=== PATIENT | male | born 1995 | race Asian ===

== ENCOUNTER 2017-03-08 09:40 | Emergency (ER) | payer OTHER ==
[~2017-03-08] VITALS: Ht 175.3 cm; Wt 70.0 kg
[2017-03-08 09:45] VITALS: TEMP 36.7; Ht 175.3 cm; Wt 70.0 kg
[2017-03-08] MEDS ORDERED: KETOROLAC TROMETHAMINE 60 MG/2 ML VIAL IM STA (09:56)
[2017-03-08] MEDS ORDERED: HYDROmorphone INJ 0.5 MG/0.5 ML SYR IM STA (09:56)
--- NOTE | 2017-03-08 09:59 | EMERGENCY ROOM VISIT NOTE ---
History Report prepared by Meet: Magdalena Flores Under the Supervision of: Dr. Chris Graham M.D. First contact with patient: 09:42 Stated Complaint: FALL/SHOULDER PAIN History of Present Illness The patient is a 21 year old white male with a past medical history of a brain lesion that he is currently in treatment for who presents to the ED with a cc of constant left shoulder pain beginning 40 minutes ago. Pt states that he was walking outside today and he slipped on the pavement and dislocated his shoulder. He reports that he fell onto his left side. He denies any previous shoulder dislocation. Negative LOC, head injury, numbness. He notes that he takes a baby aspirin every day. Source of History: patient Onset: 30 minutes ago Position: shoulder (left) Quality: other (dislocation) Timing: constant Associated Symptoms: No LOC, No numbness Note: Pt denies head injury. Review of Systems See HPI for pertinent positives and negatives. A total of ten systems were reviewed and were otherwise negative. Past Medical & Surgical Medical Problems: (1) Brain lesion Family History No pertinent family history stated. Social History Marital Status: single Housing Status: lives with roommate Occupation Status: [employer] student Current/Historical Medications Scheduled Aspirin (Aspirin Ec), 81 MG PO DAILY Dexamethasone (Dexamethasone), 2 MG PO BID Allergies Coded Allergies: No Known Allergies (Unverified , 03/08/17) Physical Exam Vital Signs Date Time Temp Pulse Resp B/P (MAP) Pulse Ox O2 Delivery O2 Flow Rate FiO2 03/08/17 11:13 71 16 138/93 98 03/08/17 09:45 36.7 69 18 130/98 98 Room Air Physical Exam GENERAL: Awake, alert, well-appearing, NAD HENT: Normocephalic, atraumatic. EYES: Normal conjunctiva. Sclera non-icteric. NECK: Supple. No nuchal rigidity. FROM. RESPIRATORY: CTAB, no rhonchi, wheezing, crackles CARDIAC: RRR, no MRG ABDOMEN: Soft, NTND, BS+ MSK: No chest wall TTP, no LE edema. Appears to have anterior dislocation. Sunken shoulder on the left side, adducted and internally rotated. He is NVI distally, M/U/R nerves. No other pain elicited. NEURO: GCS 15, CN 2-12 intact, moves all 4s on command SKIN: No rash or jaundice noted. Medical Decision & Procedures ER Provider Diagnostic Interpretation: X-ray: Per my interpretation, radiologist review. L SHOULDER MIN 2 VIEWS ROUTINE DISCUSSION: Anterior dislocation. Hill-Sachs type deformity posterior lateral aspect humeral head. All remaining osseous structures are unremarkable. There is no evidence for soft tissue swelling. IMPRESSION: Anterior dislocation. Hill-Sachs Hill-Sachs type deformity The above report was generated using voice recognition software. It may contain grammatical, syntax or spelling errors. Electronically signed by: Derrick Hurtado M.D. 03/08/2017 10:21 AM Dictated Date/Time: 03/08/2017 10:21 AM L SHOULDER MIN 2 VIEWS ROUTINE DISCUSSION: Anatomic alignment status post closed reduction. There is no evidence for soft tissue swelling. IMPRESSION: Anatomic alignment status post closed reduction The above report was generated using voice recognition software. It may contain grammatical, syntax or spelling errors. Electronically signed by: Derrick Hurtado M.D. 03/08/2017 10:52 AM Dictated Date/Time: 03/08/2017 10:51 AM Medications Administered Medications (Trade) Dose Ordered Sig/Grecia Route Start Time Stop Time Status Last Admin Dose Admin Hydromorphone HCl (Dilaudid Inj) 0.5 mg ONE STAT IM 03/08/17 09:56 03/08/17 09:58 DC 03/08/17 10:05 0.5 MG Ketorolac Tromethamine (Toradol Inj) 60 mg NOW STAT IM 03/08/17 09:56 03/08/17 09:58 DC 03/08/17 10:05 60 MG ED Course 0942: The patient was evaluated in room B7. A complete history and physical exam was performed. 1033: I reevaluated and updated the patient. 1057: I reevaluated the patient. Discussed results and discharge instructions: He verbalized understanding and agreement. The patient is ready for discharge. Medical Decision The patient is a 21 year old white male with a past medical history of a brain lesion that he is currently in treatment for who presents to the ED with a cc of constant left shoulder pain beginning 40 minutes ago. Differential diagnosis: Etiologies such as fracture, dislocation, neurovascular compromise, compartment syndrome, soft tissue injury, as well as others were entertained. Patient was seen and evaluated at the bedside. Patient stated he fell approximately 30-35 minutes prior to arrival onto the concrete outside. Patient states he slipped on the ice. Patient does take a baby aspirin. Patient denies any numbness tingling or weakness. Patient does appear to have a deformity to the left shoulder is likely consistent with a dislocation. Patient did have a shoulder film as well as meds given. Patient's initial plain films do show an anterior dislocation with Hill-Sachs deformity. Patient was reduced without complication. Postreduction x-rays were obtained and showed satisfactory relocation. Patient was given follow-up and placed in a sling. Patient was told to use his left arm with caution and not to do too much external rotation or abduction or over the shoulder movements. He was told he may follow-up with orthopedics as well as PT as needed. Patient was given strict follow-up, discharge, and return precautions. All questions were answered. Patient was deemed suitable for outpatient follow-up at this time. Patient agreed with the plan of care and was safely discharged home. The chart was completed utilizing [email or web address] Speech voice recognition software. Grammatical errors, random word insertions, pronoun errors, and incomplete sentences are an occasional consequence of this system due to software limitations, ambient noise, and hardware issues. Any formal questions or concerns about the content, text, or information contained within the body of this dictation should be directly addressed to the physician for clarification. Medication Reconcilliation Current Medication List: was personally reviewed by me Blood Pressure Screening Patient's blood pressure: Elevated blood pressure Blood pressure disposition: Elevated BP felt to be situational Impression Primary Impression: Anterior shoulder dislocation Additional Impressions: Hill Sachs deformity, left Shoulder pain, acute Fall Scribe Attestation The scribe's documentation has been prepared under my direction and personally reviewed by me in its entirety. I confirm that the note above accurately reflects all work, treatment, procedures, and medical decision making performed by me. Departure Information Dispostion Home / Self-Care Referrals [facility] Patient Instructions ED Dislocation Shoulder Redu, ED RICE, ED Shoulder Pain [facility], ED Sling, My [facility] Additional Instructions Please return to the emergency department if you have worsening or recurrent symptoms not amenable to at-home treatment. Please call for a follow-up appointment with her primary care physician. Please take your medications as prescribed. If you have other concerns and/or complaints please feel free to also call your primary care physician's office or return the ED for further evaluation, management, and treatment. Please use the sling and he may follow-up with either [facility] or [facility] orthopedics. Please use Motrin and Tylenol. You may apply ice. You received narcotic or benzodiazepene medication while in the emergency room today. This is an addictive medication that may cause drowziness as well as constipation. Do not drive, operate heavy machinery, or drink alcohol under the influence of this medication. You may take 600 mg Ibuprofen every 6 hours as needed for pain with food for no more than 2 consecutive days. You may take tylenol 1000 mg every 6 hours as needed for pain. You may take motrin and tylenol separately or at the same time. Take your medications as prescribed. You have been examined and treated today on an emergency basis only. This is not a substitute for, or an effort to provide, complete comprehensive medical care. It is impossible to recognize and treat all injuries or illnesses in a single emergency department visit. It is therefore important that you follow up closely with [facility], your PCP, and/or your specialist(s). Call as soon as possible for an appointment. Thank you for your time and consideration. I look forward to speaking with you again soon. Please don't hesitate to call us if you have any questions. Problem Qualifiers Primary Impression: Anterior shoulder dislocation Encounter type: initial encounter Laterality: left Qualified Codes: S43.015A - Anterior dislocation of left humerus, initial encounter Additional Impressions: Shoulder pain, acute Laterality: left Qualified Codes: M25.512 - Pain in left shoulder Fall Encounter type: initial encounter Qualified Codes: W19.XXXA - Unspecified fall, initial encounter
[2017-03-08] MEDS ORDERED: DEXA2TAB PO (10:01)
[2017-03-08] MEDS ORDERED: ASPI81TA28 PO (10:01)
--- NOTE | 2017-03-08 10:23 | DIAGNOSTIC IMAGING REPORT ---
L SHOULDER MIN 2 VIEWS ROUTINE CLINICAL HISTORY: s/p fall L shoulder, likely d/l trauma. Pain. COMPARISON: None DISCUSSION: Anterior dislocation. Hill-Sachs type deformity posterior lateral aspect humeral head. All remaining osseous structures are unremarkable. There is no evidence for soft tissue swelling. IMPRESSION: Anterior dislocation. Hill-Sachs Hill-Sachs type deformity The above report was generated using voice recognition software. It may contain grammatical, syntax or spelling errors. Electronically signed by: Derrick Hurtado M.D. 03/08/2017 10:21 AM Dictated Date/Time: 03/08/2017 10:21 AM
--- NOTE | 2017-03-08 10:53 | DIAGNOSTIC IMAGING REPORT ---
L SHOULDER MIN 2 VIEWS ROUTINE CLINICAL HISTORY: s/p reduction dislocation COMPARISON: Study earlier the same date DISCUSSION: Anatomic alignment status post closed reduction. There is no evidence for soft tissue swelling. IMPRESSION: Anatomic alignment status post closed reduction The above report was generated using voice recognition software. It may contain grammatical, syntax or spelling errors. Electronically signed by: Derrick Hurtado M.D. 03/08/2017 10:52 AM Dictated Date/Time: 03/08/2017 10:51 AM
[2017-03-08 11:13] VITALS: BP 138/93; PULSE 71; O2SAT 98
== END 2017-03-08 11:14 | disposition home or self-care (01) ==
LOC: EDBD 09:40 → C.EDB 09:42
DX: S43.015A Anterior dislocation of left humerus, initial encounter (principal); M25.512 Pain in left shoulder; W01.0XXA Fall on same level from slipping, tripping and stumbling without subsequent striking against object, initial encounter; Y92.89 Other specified places as the place of occurrence of the external cause; G93.9 Disorder of brain, unspecified; Z79.82 Long term (current) use of aspirin; Z79.899 Other long term (current) drug therapy

== ENCOUNTER 2017-03-11 17:52 | Emergency (ER) | payer OTHER ==
[~2017-03-11] VITALS: Ht 175.3 cm; Wt 68.2 kg
[~2017-03-11 17:52] MED LIST: ASPI81TA28 PO; DEXA2TAB PO
[2017-03-11 17:58] VITALS: TEMP 37.1; Ht 175.3 cm; Wt 68.2 kg
[2017-03-11] MEDS: LORAZEPAM 2 MG/ML 1 ML VIAL IV STA ×2 (18:28→19:08)
[2017-03-11] MEDS ORDERED: DEXA1TAB PO (18:31)
--- NOTE | 2017-03-11 18:53 | DIAGNOSTIC IMAGING REPORT ---
HEAD WITHOUT CONTRAST (CT) CT DOSE: 1228.53 mGy.cm HISTORY: Mental status change altered mental status TECHNIQUE: Multiaxial CT images of the head were performed without the use of intravenous contrast. A dose lowering technique was utilized adhering to the principles of ALARA. Comparison: None. Findings: The paranasal sinuses and mastoid air cells are clear. Small focus of several malacia medial aspect right occipital lobe. This is associated geographically with a high density posterior interhemispheric fissure suggesting a potential small subdural versus a small component of subarachnoid blood. Possible small subdural lateral aspect right posterior parietal lobe transaxial image 21. No midline shift. No intraventricular extension. Impression: Trace interhemispheric blood possibly with a small subarachnoid component as discussed. Artifact versus small right posterior subdural hematoma right posterior parietal lobe. No significant mass effect. The above report was generated using voice recognition software. It may contain grammatical, syntax or spelling errors. Electronically signed by: Derrick Hurtado M.D. 03/11/2017 6:51 PM Dictated Date/Time: 03/11/2017 6:46 PM
[2017-03-11] MEDS ORDERED: FENTANYL CITRATE INJ 50 MCG/1 ML 2 ML VIAL ONE (18:58)
[2017-03-11] MEDS ORDERED: LEVETIRACTAM 1000 MG in DEXTROSE 5% 100ML IV ONE (19:00)
[2017-03-11] MEDS ORDERED: FENTANYL CITRATE INJ 50 MCG/1 ML 2 ML VIAL IV STA (19:18)
[2017-03-11] MEDS ORDERED: LORAZEPAM 2 MG/ML 1 ML VIAL IV STA ×2 (19:18)
[2017-03-11 19:24] LABS: BASO % 0.1 %; BASO ABS # 0.01 K/uL (0-0.2); EOS % 0.1 %; EOS ABS # 0.01 K/uL (0-0.5); HEMATOCRIT 45.1 % (42-52); HEMOGLOBIN 15.4 g/dL (14.0-18.0); IG# 0.13 K/uL (0.00-0.02); LYMPH % 19.3 %; LYMPH ABS # 1.98 K/uL (1.2-3.4); MEAN CORPUSCULAR HEMOGLOBIN 31.4 pg (25-34); MEAN CORPUSCULAR HGB CONC 34.1 g/dl (32-36); MEAN PLATELET VOLUME 9.2 fL (7.4-10.4); MONO % 7.3 %; MONO ABS # 0.75 K/uL (0.11-0.59); NEUT % 71.9 %; NEUT ABS # 7.38 K/uL (1.4-6.5); PLATELET COUNT 154 K/uL (130-400); RED CELL DISTRIBUTION WIDTH CV 13.1 % (11.5-14.5); RED CELL DISTRIBUTION WIDTH SD 43.9 fL (36.4-46.3); WHITE BLOOD COUNT 10.26 K/uL (4.8-10.8)
--- NOTE | 2017-03-11 19:36 | DIAGNOSTIC IMAGING REPORT ---
CHEST ONE VIEW PORTABLE CLINICAL HISTORY: ams mental status change COMPARISON STUDY: No previous studies for comparison. FINDINGS: The bones soft tissues and hemidiaphragms are normal. The cardiomediastinal silhouette is normal. The lungs are clear. The pulmonary vasculature is normal. IMPRESSION: Negative chest. The above report was generated using voice recognition software. It may contain grammatical, syntax or spelling errors. Electronically signed by: Derrick Hurtado M.D. 03/11/2017 7:34 PM Dictated Date/Time: 03/11/2017 7:34 PM
--- NOTE | 2017-03-11 19:43 | EMERGENCY ROOM VISIT NOTE ---
History First contact with patient: 17:54 Chief Complaint: LEG PAIN,LEG INJURY Stated Complaint: LEG PAIN, ANXIETY History of Present Illness The patient is a 21 year old male who presents to the Emergency Room via EMS for evaluation of "anxiety." History is extremely limited due to patient's altered state. He states that he is feeling very anxious and is not able to remember everything that happened today. He repeatedly states that he "feels everything." He does report a history of a brain lesion but does not know anything else about this. Additional history is obtained from a [employer] restaurant crew member who was with the patient this afternoon. He states that they were on a tour around [facility] and they had stopped for something to eat. He reports that the patient collapsed, but he is unsure exactly what happened. He reports that the patient had been sitting on a table, and when the restaurant crew member turned around, the patient was laying on the ground. He states that he is not acting like his normal self, however at baseline he is very "animated." He does state that he spoke with the patient's mother, who said that the patient has been worked up for this before and was told he likely had suffered a stroke. He does report that he feels the patient is very anxious about this diagnosis. At baseline, he states the patient has difficulty walking due to left leg weakness. The patient adamantly denies any drug or alcohol use. Denies any trauma. Review of Systems A complete 10 point review of systems was reviewed with the patient with pertinent positives and negatives as per history of present illness. All else were negative. 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; chronic left foot drop Social History Smoking Status: Never Smoker Alcohol Use: occasionally Drug Use: none Marital Status: single Housing Status: lives with roommate Occupation Status: [employer] student Current/Historical Medications Scheduled Aspirin (Aspirin Ec), 81 MG PO DAILY Dexamethasone (Dexamethasone), 1 MG PO DAILY Physical Exam Vital Signs Date Time Temp Pulse Resp B/P (MAP) Pulse Ox O2 Delivery O2 Flow Rate FiO2 03/11/17 21:17 103 20 145/89 100 Room Air 03/11/17 20:30 108 20 112/60 100 Room Air 03/11/17 19:36 98 20 101/44 97 Nasal Cannula 3.0 03/11/17 19:19 98 20 107/48 98 Nasal Cannula 3.0 03/11/17 17:58 37.1 108 20 168/116 99 Room Air Physical Exam VITALS: Vitals are noted on the nurse's note and reviewed by myself. Vital signs stable. GENERAL: This is a 21-year-old male, extremely anxious appearing, repeatedly yelling for his mom, but consolable and able to follow commands. SKIN: The skin was without rashes, erythema, edema, or bruising. HEAD: Normocephalic atraumatic. EARS: External auditory canals clear, tympanic membranes pearly rose without erythema or effusion bilaterally. No hemotympanum. EYES: Pupils equal round and reactive to light and accommodation. Extraocular movements intact. MOUTH: Mucous membranes moist. Tonsils are not enlarged. Pharynx without erythema or exudate. NECK: Supple without nuchal rigidity. Cervical spine is nontender. HEART: Regular rate and rhythm without murmurs gallops or rubs. LUNGS: Clear to auscultation bilaterally without wheezes, rales or rhonchi. MUSCULOSKELETAL: Weakness of left leg noted compared to right. Strength otherwise 5/5. NEURO: Patient was alert and oriented to person place and time. Left leg weakness. Otherwise no focal neurological deficits. Medical Decision & Procedures ER Provider Diagnostic Interpretation: HEAD WITHOUT CONTRAST (CT) CT DOSE: 1228.53 mGy.cm HISTORY: Mental status change altered mental status TECHNIQUE: Multiaxial CT images of the head were performed without the use of intravenous contrast. A dose lowering technique was utilized adhering to the principles of ALARA. Comparison: None. Findings: The paranasal sinuses and mastoid air cells are clear. Small focus of several malacia medial aspect right occipital lobe. This is associated geographically with a high density posterior interhemispheric fissure suggesting a potential small subdural versus a small component of subarachnoid blood. Possible small subdural lateral aspect right posterior parietal lobe transaxial image 21. No midline shift. No intraventricular extension. Impression: Trace interhemispheric blood possibly with a small subarachnoid component as discussed. Artifact versus small right posterior subdural hematoma right posterior parietal lobe. No significant mass effect. CHEST ONE VIEW PORTABLE FINDINGS: The bones soft tissues and hemidiaphragms are normal. The cardiomediastinal silhouette is normal. The lungs are clear. The pulmonary vasculature is normal. IMPRESSION: Negative chest. Laboratory Results 03/11/17 19:10 Red Blood Count 4.90, Mean Corpuscular Volume 92.0, Mean Corpuscular Hemoglobin 31.4, Mean Corpuscular Hemoglobin Concent 34.1, Mean Platelet Volume 9.2, Neutrophils (%) (Auto) 71.9, Lymphocytes (%) (Auto) 19.3, Monocytes (%) (Auto) 7.3, Eosinophils (%) (Auto) 0.1, Basophils (%) (Auto) 0.1, Neutrophils # (Auto) 7.38, Lymphocytes # (Auto) 1.98, Monocytes # (Auto) 0.75, Eosinophils # (Auto) 0.01, Basophils # (Auto) 0.01 03/11/17 19:10 Test 03/11/17 18:36 03/11/17 19:10 Urine Color YELLOW Urine Appearance CLEAR (CLEAR) Urine pH 7.0 (4.5-7.5) Urine Specific [place] 1.011 (1.000-1.030) Urine Protein NEG (NEG) Urine Glucose (UA) NEG (NEG) Urine Ketones NEG (NEG) Urine Occult Blood NEG (NEG) Urine Nitrite NEG (NEG) Urine Bilirubin NEG (NEG) Urine Urobilinogen NEG (NEG) Urine Leukocyte Esterase NEG (NEG) Urine Opiates Screen NEG (NEG) Urine Methadone, Qualitative NEG (NEG) Urine Barbiturates NEG (NEG) Urine Phencyclidine (PCP) Level NEG (NEG) Ur Amphetamine/Methamphetamine NEG (NEG) MDMA (Ecstasy) Screen NEG (NEG) Urine Benzodiazepines Screen NEG (NEG) Urine Cocaine Metabolite NEG (NEG) Urine Marijuana (THC) NEG (NEG) White Blood Count 10.26 K/uL (4.8-10.8) Red Blood Count 4.90 M/uL (4.7-6.1) Hemoglobin 15.4 g/dL (14.0-18.0) Hematocrit 45.1 % (42-52) Mean Corpuscular Volume 92.0 fL (80-100) Mean Corpuscular Hemoglobin 31.4 pg (25-34) Mean Corpuscular Hemoglobin Concent 34.1 g/dl (32-36) Platelet Count 154 K/uL (130-400) Mean Platelet Volume 9.2 fL (7.4-10.4) Neutrophils (%) (Auto) 71.9 % Lymphocytes (%) (Auto) 19.3 % Monocytes (%) (Auto) 7.3 % Eosinophils (%) (Auto) 0.1 % Basophils (%) (Auto) 0.1 % Neutrophils # (Auto) 7.38 K/uL (1.4-6.5) Lymphocytes # (Auto) 1.98 K/uL (1.2-3.4) Monocytes # (Auto) 0.75 K/uL (0.11-0.59) Eosinophils # (Auto) 0.01 K/uL (0-0.5) Basophils # (Auto) 0.01 K/uL (0-0.2) RDW Standard Deviation 43.9 fL (36.4-46.3) RDW Coefficient of Variation 13.1 % (11.5-14.5) Immature Granulocyte % (Auto) 1.3 % Immature Granulocyte # (Auto) 0.13 K/uL (0.00-0.02) Prothrombin Time 10.0 SECONDS (9.0-12.0) Prothromb Time International Ratio 1.0 (0.9-1.1) Activated Partial Thromboplast Time 22.0 SECONDS (21.0-31.0) Partial Thromboplastin Ratio 0.8 Anion Gap 20.0 mmol/L (3-11) Est Creatinine Clear Calc Drug Dose 83.4 ml/min Estimated GFR () 86.5 Estimated GFR (Non- 74.7 BUN/Creatinine Ratio 15.7 (10-20) Calcium Level 8.5 mg/dl (8.5-10.1) Total Bilirubin 0.7 mg/dl (0.2-1) Aspartate Amino Transf (AST/SGOT) 34 U/L (15-37) Alanine Aminotransferase (ALT/SGPT) 114 U/L (12-78) Alkaline Phosphatase 55 U/L (45-117) Total Protein 7.3 gm/dl (6.4-8.2) Albumin 4.0 gm/dl (3.4-5.0) Globulin 3.3 gm/dl (2.5-4.0) Albumin/Globulin Ratio 1.2 (0.9-2) Ethyl Alcohol mg/dL < 3.0 mg/dl (0-3) Medications Administered Medications (Trade) Dose Ordered Sig/Grecia Route Start Time Stop Time Status Last Admin Dose Admin Lorazepam (Ativan Inj) 1 mg NOW STAT IV 03/11/17 18:28 03/11/17 18:30 DC 03/11/17 18:28 2 MG Levetiracetam 1000 mg/Dextrose 110 ml @ 440 mls/hr ONE ONCE IV 03/11/17 19:00 03/11/17 19:14 DC 03/11/17 19:08 440 MLS/HR Fentanyl Citrate (Fentanyl Inj) 100 mcg STK-MED ONCE .ROUTE 03/11/17 18:58 03/11/17 18:59 DC 03/11/17 18:58 100 MCG Lorazepam (Ativan Inj) 2 mg NOW STAT IV 03/11/17 19:18 03/11/17 19:19 DC 03/11/17 19:19 2 MG ECG Indication: altered mental status Rate (beats per minute): 100 Rhythm: normal sinus Findings: no acute ischemic change ED Course The patient was evaluated as above. Patient was sent immediately for CT scan of the head. I spoke with the patient's mother on the phone. She states he had extensive workup for foot drop at [facility]. He was believed to have had a CVA. The patient had a 1 minute, tonic clonic seizure in the CT scanner witnessed by instrument technician apprentice. He was post ictal immediately afterward. He was evaluated and given 2 mg Ativan IV. 1 g of Keppra was ordered and given. The patient remained very agitated and was given an additional 2 mg Ativan IV 100 g fentanyl. He was placed in soft restraints due to pulling at his IV and oxygen. The patient was moved to room B1. I spoke with the neurosurgeon at [facility], who accepted the patient in transfer. He will be transferred by ground to the emergency department due to weather conditions. Patient's mother was updated regarding the patient's status. The patient's parents arrived prior to his transfer. At this time, the patient was awake but groggy. Case was again discussed with the parents. The ambulance crew arrived and transported the patient to [facility]. Medical Decision Differential diagnosis includes CVA, TIA, intracranial hemorrhage, seizure, drug use, trauma, anxiety, among others. The patient is a 21-year-old male who presents today with altered mental status. Patient was sent immediately for CT scan and had a seizure while in the CT scanner. He was treated with a total 4 mg IV Ativan and [address] showed subarachnoid hemorrhage with possible subdural. I was able to obtain more of the patient's history from one of his professors, who was with the patient at the time that this occurred. He reports a history of "collapse" and states that the patient was acting strangely since then. I suspect that the patient likely had a spontaneous subarachnoid hemorrhage, causing a seizure and subsequent subdural hematoma. The subarachnoid hemorrhage was small and there was no mass effect. Patient was stabilized and remained hemodynamically stable while in the ED. Labs unremarkable, EKG per my interpretation shows a normal sinus rhythm. Multiple calls were made back and forth to the patient's mother to update her on the status of the patient. I spoke with the neurosurgeon at [facility], who accepted the patient in transfer and recommended ED to ED transfer. There was a slight delay in transfer due to weather conditions. Patient was ultimately transferred to [facility] via ALS. The patient was independently evaluated by Dr. Pennington, ED attending physician, who agreed with my assessment and treatment plan and was involved in patient care. Head Trauma GCS Score: 15 Medication Reconcilliation Current Medication List: was personally reviewed by me Blood Pressure Screening Patient's blood pressure: Elevated blood pressure Blood pressure disposition: Elevated BP felt to be situational Impression Primary Impression: Subarachnoid hemorrhage Additional Impression: Subdural hematoma Critical Care I have personally spent greater than 90 minutes of critical care time in the direct management of this patient. This includes bedside care, interpretation of diagnostic studies, and testing, discussion with consultants, patient, and family members, and other required patient management activities. This 90 minutes is in excess of all separately billable procedures. Departure Information Dispostion Transfer Acute Care Facility Referrals [facility] (PCP) Patient Instructions My [facility] Problem Qualifiers
[2017-03-11 19:44] LABS: CALCIUM 8.5 mg/dl (8.5-10.1); CREATININE 1.34 mg/dl (0.60-1.40); POTASSIUM 3.3 mmol/L (3.5-5.1)
[2017-03-11 19:47] LABS: TOTAL PROTEIN 7.3 gm/dl (6.4-8.2)
[2017-03-11 21:17] VITALS: BP 145/89; PULSE 103; O2SAT 100
--- NOTE | 2017-03-11 21:49 | EMERGENCY ROOM VISIT NOTE ---
ED Visit Note First contact with patient: 17:54 I have personally seen and evaluated the patient with the PA. I agree with the diagnosis and management decisions and have been personally involved in the case. I was called to see the patient during a code purple. The patient apparently had a tonic-clonic seizure while in CAT scan that lasted approximately 1 minute. On my evaluation, the patient had several seconds of seizure activity with head turn to the left and frothy saliva. The patient's airway was cleared with suction and a nasal airway was inserted. The patient did receive 2 mg of IV Ativan. This seizure had stopped prior to the Ativan administration however the patient was significantly postictal. He was combative and grabbing at to bring, kicking and pulling. The patient required an additional 2 mg of IV Ativan. His vital signs did normalize and he was placed on the quality assurance monitor chassis. He was brought back to the emergency department where he was placed in the trauma bay. 1 g of IV Keppra was ordered. The patient was administered a total of 100 g of IV fentanyl for agitation. He was placed in soft limb restraint. CT scan of the head was read by radiology and significant for a subdural hematoma and likely small area of subarachnoid hemorrhage. I suspect the patient likely seized prior to his "fall" and sustained a subdural hemorrhage. The subarachnoid may or may not have been the inciting event. The case was discussed with [facility] who has accepted the patient in transfer. Please see Jyotsna Munson PA-C's notes for further details of the history, physical and visit. Diagnosis: Intracranial hemorrhage, seizure I have personally spent greater than 35 minutes of critical care time in the direct management of this patient. This includes bedside care, interpretation of diagnostic studies, and testing, discussion with consultants, patient, and family members, and other required patient management activities. This 354 minutes is in excess of all separately billable procedures.
== END 2017-03-11 21:27 | disposition short-term general hospital (02) ==
LOC: C.EDD 17:52 → EDBD 17:52 → C.EDB 21:27
DX: I60.9 Nontraumatic subarachnoid hemorrhage, unspecified (principal); I62.00 Nontraumatic subdural hemorrhage, unspecified; R56.9 Unspecified convulsions; M21.372 Foot drop, left foot; Z79.82 Long term (current) use of aspirin